=== PATIENT | female | born 1990 | race Two or more races ===

== ENCOUNTER 2017-05-14 20:15 | Emergency (ER) | payer OTHER ==
[~2017-05-14] VITALS: Ht 152.4 cm; Wt 83.9 kg
[~2017-05-14 20:15] MED LIST: ALBUTEROL; CEFTIN500 MG PO; CIPRO500 MG PO; CORTISPORIN EAR10 M1 OT; DIFLUCAN; DOLOGESIC 500-1 EACH PO; FLAGYL500MG PO; INTESTINEX680 MG PO; PEPCID40 MG PO; PHENERGAN25 MG PO; PREDNISONE20 MG; PROVENTIL; PULMICORT; SINGULAIR10 MG; SYMBICORT 16010.2 GM IH; SYMBYAX 12-501 UDCAP; TRAMADOL HCL50 MG PO; ULTRACET PO; ULTRAM50 MG PO; ZANTAC150 MG PO
[2017-05-14] MEDS ORDERED: SYMBICORT 16010.2 GM (20:33)
== END 2017-05-15 02:24 | disposition home or self-care (01) ==
LOC: ER 20:15
DX: O26.891 Other specified pregnancy related conditions, first trimester (principal); R10.2 Pelvic and perineal pain; K29.70 Gastritis, unspecified, without bleeding; Z34.01 Encounter for supervision of normal first pregnancy, first trimester

== ENCOUNTER → 2017-05-30 | Emergency (ER) | payer OTHER ==
[~2017-05-30] VITALS: Ht 165.1 cm; Wt 84.4 kg
[~2017-05-30] MED LIST changes: +PEPCID AC20 MG PO; +SYMBICORT 16010.2 GM; +ZOFRAN ODT4 MG SL
== END | disposition home or self-care (01) ==
LOC: ER 19:48
DX: Z34.81 Encounter for supervision of other normal pregnancy, first trimester (principal); O46.8X1 Other antepartum hemorrhage, first trimester; H10.89 Other conjunctivitis; N83.292 Other ovarian cyst, left side

== ENCOUNTER → 2017-06-04 | Emergency (ER) | payer OTHER ==
[~2017-06-04] VITALS: Ht 152.4 cm; Wt 85.7 kg
== END | disposition home or self-care (01) ==
LOC: ER 22:04
DX: Z34.81 Encounter for supervision of other normal pregnancy, first trimester (principal); O21.0 Mild hyperemesis gravidarum

== ENCOUNTER 2017-06-14 18:03 | Inpatient (IN) | payer OTHER ==
[~2017-06-14] VITALS: Ht 152.4 cm; Wt 86.6 kg
[2017-06-18] MEDS ORDERED: ALBUTEROL2.5 MG/3 M IH (08:46)
[2017-06-18] MEDS ORDERED: PROTONIX40 M1 PO (08:48)
== END 2017-06-18 11:39 | disposition home or self-care (01) | DRG 781 ==
LOC: ER 18:03 → SEC-K 21:16 → OB/GYN 21:16
PROC: 3E0F7GC Introduction of Other Therapeutic Substance into Respiratory Tract, Via Natural or Artificial Opening (ICD-10-PCS; principal; 2017-06-15)
DX: O21.0 Mild hyperemesis gravidarum (principal); E86.0 Dehydration; J45.998 Other asthma

== ENCOUNTER 2017-09-15 15:55 | Outpatient (CLI) | payer OTHER ==
[~2017-09-15 15:55] MED LIST changes: +ALBUTEROL2.5 MG/3 M IH; +PROTONIX40 M1 PO
== END 2017-09-16 10:18 | disposition home or self-care (01) ==
LOC: OBS/DEL 15:55
DX: O20.0 Threatened abortion (principal); O60.02 Preterm labor without delivery, second trimester; O99.342 Other mental disorders complicating pregnancy, second trimester; O46.8X2 Other antepartum hemorrhage, second trimester; F41.8 Other specified anxiety disorders; Z34.82 Encounter for supervision of other normal pregnancy, second trimester

== ENCOUNTER 2017-12-14 09:14 | Inpatient (IN) | payer OTHER ==
[~2017-12-14] VITALS: Ht 152.4 cm; Wt 3.2 kg
[2017-12-14] MEDS ORDERED: SYMBIC (10:42)
[2017-12-14] MEDS ORDERED: SYMBICORT 16010.2 GM IH (10:43)
[2017-12-19] MEDS ORDERED: SYMBICORT 80/10.2 GM (09:32)
[2017-12-22] MEDS ORDERED: PREPLUS CA-FE1 EACH PO (07:33)
[2017-12-22] MEDS ORDERED: PERCOGESIC EXT1 EACH PO (07:34)
[2017-12-22] MEDS ORDERED: ANUCORT-HC25 MG RECTAL (07:35)
== END 2017-12-22 13:06 | DRG 785 ==
LOC: LDR 12-18 07:00 → O/R 12-19 06:38 → OB/GYN 12-19 06:38
PROVIDERS: Obstetrics & Gynecology
PROC: 0UL70ZZ Occlusion of Bilateral Fallopian Tubes, Open Approach (ICD-10-PCS; 2017-12-19)
PROC: 4A1HXCZ Monitoring of Products of Conception, Cardiac Rate, External Approach (ICD-10-PCS; 2017-12-19)
PROC: 10D00Z1 Extraction of Products of Conception, Low, Open Approach (ICD-10-PCS; principal; 2017-12-19 09:30)
DX: O82 Encounter for cesarean delivery without indication (principal); Z3A.39 39 weeks gestation of pregnancy; Z37.0 Single live birth; Z30.2 Encounter for sterilization

== ENCOUNTER 2017-12-26 18:12 | Emergency (ER) | payer OTHER ==
[~2017-12-26] VITALS: Ht 152.4 cm; Wt 90.7 kg
[~2017-12-26 18:12] MED LIST changes: +ANUCORT-HC25 MG RECTAL; +PERCOGESIC EXT1 EACH PO; +PREPLUS CA-FE1 EACH PO; +SYMBIC; +SYMBICORT 80/10.2 GM
[2017-12-26] MEDS ORDERED: CIPRO500 MG (18:47)
== END 2017-12-26 21:34 | disposition home or self-care (01) ==
LOC: ER 18:12
DX: O86.09 Infection of obstetric surgical wound, other surgical site (principal)

== ENCOUNTER 2018-06-04 19:21 | Emergency (ER) | payer OTHER ==
[~2018-06-04] VITALS: Ht 152.4 cm; Wt 83.9 kg
[~2018-06-04 19:21] MED LIST changes: +CIPRO500 MG
== END 2018-06-04 23:33 | disposition home or self-care (01) ==
LOC: ER 19:21
DX: K52.9 Noninfective gastroenteritis and colitis, unspecified (principal)

== ENCOUNTER 2019-01-01 14:05 | Emergency (ER) | payer OTHER ==
[~2019-01-01] VITALS: Ht 152.4 cm; Wt 88.9 kg
[2019-01-01] MEDS ORDERED: PROAIR HFA8.5 GM (14:23)
[2019-01-01] MEDS ORDERED: SYMBICORT IH (14:25)
== END 2019-01-01 18:06 | disposition home or self-care (01) ==
LOC: ER 14:05
DX: B34.9 Viral infection, unspecified (principal)

== ENCOUNTER 2020-08-27 09:28 | Emergency (ER) | payer OTHER ==
[~2020-08-27] VITALS: Ht 152.4 cm; Wt 86.2 kg
[~2020-08-27 09:28] MED LIST changes: +PROAIR HFA8.5 GM; +SYMBICORT IH
[2020-08-27] MEDS ORDERED: SKELAGESIC PO (14:32)
[2020-08-27] MEDS ORDERED: TESSALON PERLE100 M1 PO (14:32)
[2020-08-27] MEDS ORDERED: ZITHROMAX500 MG PO (14:32)
[2020-08-27] MEDS ORDERED: IPRAT-ALBUT 0.5-3 ML IH (14:32)
[2020-08-27] MEDS ORDERED: MUCINEX DM ER1 EAC1 PO (14:32)
[2020-08-27] MEDS ORDERED: BUDESONIDE0.5 MG/2 M IH (14:32)
== END 2020-08-27 15:03 ==
LOC: ER 09:28
DX: J06.9 Acute upper respiratory infection, unspecified (principal); B33.8 Other specified viral diseases

== ENCOUNTER 2020-11-23 08:30 | Emergency (ER) | payer OTHER ==
[~2020-11-23] VITALS: Ht 152.4 cm; Wt 93.4 kg
[~2020-11-23 08:30] MED LIST changes: +BUDESONIDE0.5 MG/2 M IH; +IPRAT-ALBUT 0.5-3 ML IH; +MUCINEX DM ER1 EAC1 PO; +SKELAGESIC PO; +TESSALON PERLE100 M1 PO; +ZITHROMAX500 MG PO
[2020-11-23] MEDS ORDERED: RISPERDAL2 MG PO (08:46)
[2020-11-23] MEDS ORDERED: CLONAZEPAM0.5 MG PO (08:46)
== END 2020-11-23 18:06 | disposition home or self-care (01) ==
LOC: ER 08:30
DX: J20.9 Acute bronchitis, unspecified (principal); B34.9 Viral infection, unspecified; Z03.818 Encounter for observation for suspected exposure to other biological agents ruled out

== ENCOUNTER 2021-06-21 11:03 | Emergency (ER) | payer OTHER ==
[~2021-06-21] VITALS: Ht 152.4 cm; Wt 102.5 kg
[~2021-06-21 11:03] MED LIST changes: +CLONAZEPAM0.5 MG PO; +RISPERDAL2 MG PO
[2021-06-21] MEDS ORDERED: RISPERDAL4 MG (12:07)
[2021-06-21] MEDS ORDERED: LISINOPRIL5 MG (12:07)
== END 2021-06-21 12:15 | disposition home or self-care (01) ==
LOC: ER 11:03
DX: J20.9 Acute bronchitis, unspecified (principal); Z88.8 Allergy status to other drugs, medicaments and biological substances

== ENCOUNTER 2021-09-12 15:17 | Emergency (ER) | payer OTHER ==
[~2021-09-12] VITALS: Ht 154.9 cm; Wt 99.8 kg
[~2021-09-12 15:17] MED LIST changes: +LISINOPRIL5 MG; +RISPERDAL4 MG
[2021-09-12] MEDS ORDERED: LEXAPRO20 MG PO (15:45)
[2021-09-12] MEDS ORDERED: ALBUTEROL0.63 MG/3 IH (15:45)
[2021-09-12] MEDS ORDERED: SYMBICORT 16010.2 GM IH (15:46)
== END 2021-09-12 17:44 | disposition home or self-care (01) ==
LOC: ER 15:17
DX: U07.1 COVID-19 (principal); Z88.6 Allergy status to analgesic agent

== ENCOUNTER 2022-10-12 16:26 | Emergency (ER) | payer OTHER ==
[~2022-10-12] VITALS: Ht 152.4 cm; Wt 72.6 kg
[~2022-10-12 16:26] MED LIST changes: +ALBUTEROL0.63 MG/3 IH; +LEXAPRO20 MG PO
== END 2022-10-12 20:38 | disposition home or self-care (01) ==
LOC: ER 16:26
DX: S13.4XXA Sprain of ligaments of cervical spine, initial encounter (principal); Y33.XXXA Other specified events, undetermined intent, initial encounter; Y93.89 Activity, other specified; Y92.89 Other specified places as the place of occurrence of the external cause; Y99.8 Other external cause status; Z88.6 Allergy status to analgesic agent

== ENCOUNTER 2023-04-19 18:24 | Emergency (ER) | payer OTHER ==
[~2023-04-19] VITALS: Ht 149.9 cm; Wt 71.2 kg
[~2023-04-19 18:24] MED LIST changes: +ATORVASTATIN CA20 MG PO
[2023-04-19] MEDS ORDERED: RISPERDAL0.5 MG PO (18:40)
[2023-04-19 20:28] LABS: HEMATOCRIT 40.5 % (36.0-45.00); MEAN CELL VOLUME 86.2 fL (80.00-100.00); MEAN CORPUSCULAR HEMOGLOBIN 29.9 pg (27.00-32.0); MEAN CORPUSCULAR HGB CONC 34.7 g/dl (32.0-36.0); PLATELET COUNT 209 K/uL (150-450); RED CELL DISTRIBUTION WIDTH 13.3 % (11.5-14.5)
[2023-04-19 20:50] LABS: INR 1.05; PARTIAL THROMBOPLASTIN TIME 27.6 SECONDS (22.0-34.0)
[2023-04-19 20:53] LABS: CALCIUM 9.3 mg/dL (8.5-10.1); CREATININE SERUM 0.72 mg/dL (0.55-1.02); GFR 93.87; POTASSIUM 3.43 mEq/L (3.5-5.1)
[2023-04-19 21:03] LABS: PH,URINE 7.5 (5.0-8.0); URINE APPEARANCE Clear; URINE BILIRRUBIN Negative (NEGATIVE); URINE BLOOD Moderate; URINE COLOR Yellow; URINE GLUCOSE Negative (NEGATIVE); URINE LEUKOCYTE Negative; URINE NITRATE Negative; URINE PROTEIN Negative (NEGATIVE)
[2023-04-19 21:07] LABS: URINE BACTERIA 406.9 uL (0.0-1933); URINE EPITHELIAL CELLS 31.6 uL (0.0-38.8); URINE RBC 6.6 uL (0.0-20.8); URINE WBC 4.6 uL (0.0-23.2)
[2023-04-19] MEDS ORDERED: CEFTRIAXONE SODIUM 1,000 MG VIAL IM STA (21:47)
== END 2023-04-19 22:10 | disposition home or self-care (01) ==
LOC: ER 18:24
PROVIDERS: General Practice
DX: N89.8 Other specified noninflammatory disorders of vagina (principal); N93.9 Abnormal uterine and vaginal bleeding, unspecified; Z88.6 Allergy status to analgesic agent

== ENCOUNTER 2023-09-08 11:15 | Emergency (ER) | payer OTHER ==
[~2023-09-08] VITALS: Ht 149.9 cm; Wt 77.1 kg
[~2023-09-08 11:15] MED LIST changes: +RISPERDAL0.5 MG PO
[2023-09-08] MEDS ORDERED: ALBUTEROL1.25 MG/3 (11:21)
[2023-09-08] MEDS ORDERED: COZAAR100 MG (11:21)
[2023-09-08] MEDS ORDERED: NEOMYCIN/POLYMYXIN B/HYDROCORT 20 DR/ML BOTTLE OT STA (11:45)
[2023-09-08] MEDS ORDERED: NEOMYCIN/POLYMYXIN B/HYDROCORT 20 DR/ML BOTTLE OT ONE (12:07)
[2023-09-08] MEDS ORDERED: LOSARTAN POTASSIUM 100 MG TABLET PO STA (12:13)
[2023-09-08] MEDS ORDERED: cloNIDine HCL 0.2 MG TABLET PO STA (14:29)
[2023-09-08] MEDS ORDERED: CLONIDINE HCL 0.1 MG TABLET PO ONE (14:40)
== END 2023-09-08 17:07 | disposition home or self-care (01) ==
LOC: ER 11:16
DX: M94.0 Chondrocostal junction syndrome [Tietze] (principal); H60.90 Unspecified otitis externa, unspecified ear; Z88.6 Allergy status to analgesic agent

== ENCOUNTER 2024-07-01 18:37 | Emergency (ER) | payer OTHER ==
[~2024-07-01] VITALS: Ht 149.9 cm; Wt 77.1 kg
[~2024-07-01 18:37] MED LIST changes: +ALBUTEROL1.25 MG/3; +COZAAR100 MG
[2024-07-02 00:54] LABS: BASO % 0.9 % (0.1-1.2); EOS # 0.28 (0.04-0.54); EOS % 3.7 % (0.7-7.0); HEMATOCRIT 41.1 % (34.1-44.9); HEMOGLOBIN 13.7 g/dL (11.2-15.7); LYMPH # 2.68 (1.18-3.74); LYMPH % 35.5 % (19.3-53.1); MEAN CORPUSCULAR HEMOGLOBIN 28.7 pg (25.6-32.2); MONO # 0.41 (0.24-0.82); MONO % 5.4 % (4.7-12.5); NEUT # 4.08 (1.56-6.13); NEUT % 54.2 % (34.0-71.1); PLATELET COUNT 195 K/uL (163-369); RED BLOOD COUNT 4.78 M/uL (3.93-5.22); RED CELL DISTRIBUTION WIDTH 12.1 % (11.6-14.4)
[2024-07-02 00:57] LABS: PH,URINE 6.5 (5.0-8.0); URINE APPEARANCE Clear; URINE BILIRRUBIN Negative (NEGATIVE); URINE BLOOD Large; URINE COLOR Yellow; URINE GLUCOSE Negative (NEGATIVE); URINE KETONE Negative (NEGATIVE); URINE LEUKOCYTE Negative; URINE NITRATE Negative; URINE PROTEIN Negative (NEGATIVE); URINE UROBILINOGEN 0.2 E.U./dl
[2024-07-02 01:03] LABS: URINE BACTERIA 876.3 uL (0.0-1933); URINE EPITHELIAL CELLS 19.3 uL (0.0-38.8); URINE RBC 2.6 uL (0.0-20.8); URINE WBC 21.2 uL (0.0-23.2)
[2024-07-02 01:29] LABS: BILIRUBIN TOTAL 0.57 mg/dL (0.3-1.2); CALCIUM 8.5 mg/dL (8.5-10.1); CREATININE SERUM 0.64 mg/dL (0.55-1.02); GFR 106.87; GLOBULINA 3.6 G/DL (2.4-3.5); POTASSIUM 3.49 mEq/L (3.5-5.1); TOTAL PROTEIN 7.6 gm/dL (6.4-8.2)
[2024-07-02] MEDS ORDERED: DOLOGESIC-DF 51 EACH PO (02:55)
== END 2024-07-02 03:11 ==
LOC: ER 18:44
PROVIDERS: Preventive Medicine Public Health & General Preventive Medicine
DX: R10.2 Pelvic and perineal pain (principal); Z88.6 Allergy status to analgesic agent